=== PATIENT | male | born 1970 | race Caucasian/White ===

== ENCOUNTER 2022-05-10 09:11 | Emergency (ER) | payer OTHER ==
[~2022-05-10] VITALS: Ht 162.6 cm; Wt 81.6 kg
[2022-05-10 09:24] VITALS: BP_SYST 143
[2022-05-10] MEDS ORDERED: DIPHTH,PERTUSS(ACELL),TET VAC 0.5 ML VIAL (Tdap) I.M. ONE (09:30)
[2022-05-10] MEDS ORDERED: BACITRACIN 1 GM OINT TP ONE (09:30)
[2022-05-10] MEDS ORDERED: LIDOCAINE 1% 10 MG/ML, 20 ML MDV INJ ONE (09:30)
--- NOTE | 2022-05-10 10:20 | NUR ---
DR. PLATA DONE I&D BEDSIDE FOR HANDS WOUND.
--- NOTE | 2022-05-10 10:27 | NUR ---
bacitracin applied to swollen site and covered with a bandage
[2022-05-10] MEDS ORDERED: CLIN-142 PO (11:06)
[2022-05-10] MEDS ORDERED: HYDR-3917 PO (11:06)
[2022-05-10] MEDS ORDERED: IBUP-1971 PO (11:06)
--- NOTE | 2022-05-10 11:19 | NUR ---
Patient given written and verbal discharge instructions and verbalizes understanding. ER MD discussed with patient the results and treatment provided. Patient in stable condition. ID arm band removed. Rx of NORCO AND CLINDAMYCIN given. Patient educated on pain management and to follow up with PMD. Pain Scale 0. Opportunity for questions provided and answered. Medication side effect fact sheet provided.
[2022-05-10 11:20] VITALS: BP_SYST 134
== END 2022-05-10 11:19 | disposition home or self-care (01) ==
LOC: SED 09:11
DX: L03.113 Cellulitis of right upper limb (principal); R22.31 Localized swelling, mass and lump, right upper limb; Z79.899 Other long term (current) drug therapy
CPT/HCPCS: 99284; 10160; 73130; 90715; 90471; J2001